=== PATIENT | male | born 1990 | race Caucasian/White ===

== ENCOUNTER 2019-09-19 20:46 | Emergency (ER) | payer SELFPAY ==
[~2019-09-19] VITALS: Ht 185.4 cm; Wt 81.6 kg
[2019-09-19 20:58] VITALS: Ht 185.4 cm; Wt 81.6 kg
[2019-09-19 23:17] VITALS: BP 106/51
== END 2019-09-19 23:52 | disposition home or self-care (01) ==
LOC: ED 20:46
DX: B34.9 Viral infection, unspecified (principal)
CPT/HCPCS: 87804; J0780; J1200; J1885